=== PATIENT | male | born 1985 | race Caucasian/White ===

== ENCOUNTER 2017-10-15 07:11 | Emergency (ER) | payer OTHER ==
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
== END 2017-10-15 11:20 | disposition home or self-care (01) ==
LOC: ERS 07:11 → EDBD 07:11 → ERS 11:20
DX: S30.0XXA Contusion of lower back and pelvis, initial encounter (principal); S40.012A Contusion of left shoulder, initial encounter; S40.011A Contusion of right shoulder, initial encounter; V43.52XA Car driver injured in collision with other type car in traffic accident, initial encounter
CPT/HCPCS: 93005

== ENCOUNTER 2017-10-16 13:32 | Emergency (ER) | payer OTHER ==
[2017-10-16 15:10] LABS: Bilirubin Negative (Negative); Blood, Urine Negative (Negative); Clarity CLEAR (Clear); Glucose, Urine (Dipstick) Negative (Negative); Leukocyte Negative (Negative); Nitrite Negative (Negative); Protein, Urine (Dipstick) Negative (Neg-Trace); Specific Gravity, Urine 1.023 (1.002-1.036)
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
== END 2017-10-16 16:19 | disposition home or self-care (01) ==
LOC: ERS 13:32
DX: K40.90 Unilateral inguinal hernia, without obstruction or gangrene, not specified as recurrent (principal)
CPT/HCPCS: 76870; 81003; 93976

== ENCOUNTER 2017-10-23 15:46 | Outpatient (CLI) | payer OTHER ==
[2017-10-23 16:12] LABS: #Eosinphils 0.2 thou/uL (0.0-0.7); #Lymphocytes 1.8 thou/uL (1.20-3.40); #Monocytes 0.4 thou/uL (0.11-0.59); #Neutrophils 3.7 thou/uL (1.40-6.50); %Basophils 0.3 % (0.0-1.0); %Lymphocytes 28.9 % (21.0-51.0); %Monocytes 6.9 % (0.0-10.0); Hemoglobin 15.6 g/dL (14.0-18.0); Mean Corpuscular HGB CONC 33.4 g/dL (32.0-36.0); Mean Corpuscular Volume 92.9 fl (80.0-94.0); Platelet Count 212 thou/uL (130-400); RBC Distribution Width 11.9 % (11.5-14.5); Red Blood Cell (RBC) Count 5.02 mill/uL (4.70-6.10); White Blood Cell (WBC) Count 6.1 thou/uL (4.8-10.8)
[2017-10-23 16:28] LABS: Anion Gap 13 mmol/L (10-20); BUN (Urea Nitrogen) 12 mg/dL (8.9-20.6); Calc. Creatinine Clearance 0 mL/min (70-130); Calcium 9.8 mg/dL (7.8-10.44); Carbon Dioxide 28 mmol/L (22-29); Chloride 105 mmol/L (98-107); Estimated GFR-MDRD Greater than 90; Glucose 89 mg/dL (70-105); Potassium 4.1 mmol/L (3.5-5.1); Sodium 142 mmol/L (136-145)
== END 2017-10-23 15:47 | disposition home or self-care (01) ==
LOC: LABBT 15:46
PROVIDERS: ATTEND Specialist
DX: Z01.812 Encounter for preprocedural laboratory examination (principal); K40.90 Unilateral inguinal hernia, without obstruction or gangrene, not specified as recurrent
CPT/HCPCS: 80048; 85025

== ENCOUNTER 2017-11-05 10:13 | Day surgery (SDC) | payer OTHER ==
[2017-10-23 15:55] VITALS: BMI 36.6
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
[2017-11-05] MEDS ORDERED: CEFAZOLIN/Water 2 GM/20 ML SYRINGE ONE (11:01)
[2017-11-05] MEDS ORDERED: Ketorolac Tromethamine 30 MG/ML VIAL ONE (11:01)
[2017-11-05] MEDS ORDERED: Bupivacaine 0.25% HCL 30 ML VIAL ONE (11:08)
[2017-11-05] MEDS ORDERED: Lidocaine 2% w/Epinephrine 1:200K 20 ML VIAL ONE (11:08)
[2017-11-05] MEDS ORDERED: Midazolam HCl 2 mg/2 ml Vial ONE ×2 (11:10)
[2017-11-05] MEDS ORDERED: Fentanyl 100 MCG/2 ML VIAL ONE ×2 (11:10)
--- NOTE | 2017-11-05 13:19 | OP ---
DATE OF OPERATION: 11/05/2017 PREOPERATIVE DIAGNOSIS: Direct right inguinal hernia. POSTOPERATIVE DIAGNOSIS: Direct right inguinal hernia. PROCEDURE: Direct right inguinal hernia repair with PHS mesh. SURGEON: Dr. Jarrod Alonzo. ANESTHESIA: General. Local 0.5% Marcaine 30 mL, mixed with 2% Xylocaine 20 mL with epinephrine, a t otal mixture used. PROCEDURE IN DETAIL: The patient taken to the operating room where under general anesthesia, the abd omen was clipped of hair, prepared with chloraprep, draped in routine fashion. Ioban was used. Inci jojo was made in the right groin and carried down through the skin and subcutaneous tissue after anes thetizing the local anesthetic mixture infiltrated for ilioinguinal nerve block along the line of inc ision in the right groin. External oblique dissected free and incised in the direction of its fibers to the external ring and cord structures dissected free and surrounded with a Aida drain. [place] teric fibers taken down with the cautery, identifying absence of an indirect sac. A direct hernia de fect was noted. This was dissected free and preperitoneal space potentiated and underlay portion of the PHS mesh placed in the preperitoneal space, onlay portion placed in floor of the inguinal canal, placing the extended portion superiorly. A slit made in the mesh onlay portion laterally to the cyli ndrical connecting ring and brought around the cord structures laterally and mesh secured laterally t o Poupart's ligament with interrupted suture of 0 Nurolon and inferiorly the mesh secured with Steve 's ligament with interrupted suture of 0 Nurolon. Another single suture was placed approximating the inferior lateral mesh to Poupart's ligament inferiorly. Good hemostasis noted. Sherman drain was r emoved. Good hernia repair appreciated. External oblique closed with 3-0 Monocryl, Camper's fascia with continuous suture of 3-0 Monocryl, skin with continuous subcuticular suture of 4-0 Monocryl. Lo jose anesthetic mixture infiltrated in the space of the inguinal canal and space above and below Campe r's fascia and infiltrated into skin and subcutaneous tissue. Patient tolerated the procedure well.
[2017-11-05] MEDS ORDERED: Lidocaine 1% PF 5 ML VIAL ONE (16:27)
[2017-11-05] MEDS ORDERED: Glycopyrrolate 0.2 MG/ML 5 ML SYRINGE ONE (16:27)
[2017-11-05] MEDS ORDERED: Propofol 200 MG/20 ML VIAL ONE (16:27)
== END 2017-11-05 15:15 | disposition home or self-care (01) ==
LOC: SDC 10:13
PROVIDERS: ATTEND Specialist
PROC: 0YU50JZ Supplement Right Inguinal Region with Synthetic Substitute, Open Approach (ICD-10-PCS; principal; 2017-11-05)
DX: K40.90 Unilateral inguinal hernia, without obstruction or gangrene, not specified as recurrent (principal); Z98.890 Other specified postprocedural states
CPT/HCPCS: C1781; J0131; J1885; J2001; J2250; J2704; J3010; S0020